=== PATIENT | female | born 1940 | race Caucasian/White ===

== ENCOUNTER 2020-10-29 16:25 | Inpatient (IN) | payer MEDICARE, OTHER ==
[~2020-10-29] VITALS: Ht 165.1 cm; Wt 95.4 kg
[~2020-10-29 16:25] MED LIST: ASPIRIN CHEWABL81 MG PO; ASPIRIN325 M1 PO; CERTAGEN1 EACH PO; COZAAR100 MG PO; ELIQUIS5 MG PO; HYZAAR 100-12.1 EACH PO; LEXAPRO 10MG TA10 MG PO; LOVASTATIN20 MG PO; LOVAZA1 GM PO; NORCO 5-325 TA1 EACH PO; PRILOSEC20 MG PO; TOPROL XL 25MG25 MG PO; TYLENOL500 MG PO
[2020-10-29 17:16] LABS: BASOPHIL 0.3 % (0-2); EOSINOPHIL 1.2 % (0-7); HGB 14.5 g/dl (12.5-16.0); LYMPHOCYTE 21.5 % (15-48); MCH 33.3 pg (25.0-31.0); MCHC 33.7 g/dL (32.0-36.0); MCV 98.6 fL (78.0-100.0); MONOCYTE 10.8 % (0-12); MPV 10.9 fL (6.0-9.5); NEUTROPHIL 66.1 % (41-80); NRBC 0; PLT 258 K/uL (150-400); RBC 4.36 M/uL (4.20-5.40); RDW 11.9 % (11.5-14.0); WBC 6.7 K/uL (4.0-10.5)
[2020-10-29 17:33] LABS: INR 1.44 (0.9-1.2); PROTHROMBIN TIME 16.8 SECONDS (11.8-13.4); PTT 28.6 SECONDS (24.4-34.7)
[2020-10-29 17:44] LABS: ALBUMIN 3.5 g/dL (3.4-5.0); BILIRUBIN - TOTAL 0.4 mg/dL (0.2-1.0); BUN/CREAT RATIO (CALC) 19.8 RATIO; CREATININE 1.06 mg/dL (0.51-0.95); FT4 (FREE T4) 0.8 ng/dL (0.76-1.46); GLOBULIN (CALCULATION) 3.2 g/dL; POTASSIUM 3.7 mmol/L (3.5-5.1); TOTAL PROTEIN 6.7 g/dL (6.4-8.2)
[2020-10-29 17:45] LABS: PRO-BNP 385 pg/mL (<450)
[2020-10-29 18:15] LABS: BILIRUBIN NEGATIVE (NEGATIVE); BLOOD NEGATIVE Ery/uL (NEGATIVE); CLARITY CLEAR (CLEAR); COLOR YELLOW (YELLOW); GLUCOSE (U) NORMAL (NORMAL); LEUKOCYTES TRACE Leu/uL (NEGATIVE); NITRITE NEGATIVE (NEGATIVE); PROTEIN NEGATIVE (NEGATIVE); UROBILINOGEN 0.2 mg/dL (0.2-1.0)
[2020-10-29 18:34] LABS: URINARY WBC RARE
[2020-10-29 18:35] LABS: BACTERIA TRACE
[2020-10-29] MEDS ORDERED: HCTZ12.5 MG PO (20:48)
[2020-10-29] MEDS ORDERED: WARFARIN SODIUM2 MG PO (20:48)
[2020-10-29] MEDS ORDERED: CLARITIN10 MG PO (20:49)
[2020-10-29] MEDS ORDERED: ACETAMINOPHEN500 M1 PO (20:49)
[2020-10-30 04:35] LABS: BASOPHIL 0.3 % (0-2); EOSINOPHIL 1.5 % (0-7); HCT 41.1 % (37.0-47.0); HGB 14.3 g/dl (12.5-16.0); LYMPHOCYTE 26.3 % (15-48); MCH 33.6 pg (25.0-31.0); MCHC 34.8 g/dL (32.0-36.0); MCV 96.7 fL (78.0-100.0); MONOCYTE 14.4 % (0-12); MPV 10.7 fL (6.0-9.5); NEUTROPHIL 57.2 % (41-80); NRBC 0; PLT 249 K/uL (150-400); RBC 4.25 M/uL (4.20-5.40); WBC 7.2 K/uL (4.0-10.5)
[2020-10-30 04:45] LABS: INR 1.52 (0.9-1.2); PROTHROMBIN TIME 17.6 SECONDS (11.8-13.4); PTT 28.1 SECONDS (24.4-34.7)
[2020-10-30 05:08] LABS: ALBUMIN 3.1 g/dL (3.4-5.0); BILIRUBIN - TOTAL 0.6 mg/dL (0.2-1.0); BUN/CREAT RATIO (CALC) 19.6 RATIO; CREATININE 0.97 mg/dL (0.51-0.95); GLOBULIN (CALCULATION) 2.8 g/dL; POTASSIUM 3.3 mmol/L (3.5-5.1); TOTAL PROTEIN 5.9 g/dL (6.4-8.2)
[2020-10-31 04:12] LABS: BASOPHIL 0.4 % (0-2); EOSINOPHIL 1.1 % (0-7); HCT 39.3 % (37.0-47.0); HGB 13.4 g/dl (12.5-16.0); LYMPHOCYTE 26.1 % (15-48); MCH 33.3 pg (25.0-31.0); MCHC 34.1 g/dL (32.0-36.0); MCV 97.5 fL (78.0-100.0); MONOCYTE 15.4 % (0-12); MPV 10.7 fL (6.0-9.5); NEUTROPHIL 56.7 % (41-80); NRBC 0; PLT 245 K/uL (150-400); RBC 4.03 M/uL (4.20-5.40); RDW 12.2 % (11.5-14.0)
[2020-10-31 04:20] LABS: INR 1.53 (0.9-1.2); PROTHROMBIN TIME 17.7 SECONDS (11.8-13.4)
[2020-10-31 04:39] LABS: BUN/CREAT RATIO (CALC) 23.2 RATIO; CREATININE 0.99 mg/dL (0.51-0.95); MAGNESIUM 1.8 mg/dL (1.8-2.4); POTASSIUM 3.5 mmol/L (3.5-5.1)
[2020-10-31 04:46] LABS: PRO-BNP 1886 pg/mL (<450)
--- NOTE | 2020-10-31 17:00 | NUR ---
PT TO TRANSFER TO [facility]. EMS HERE FOR TRAMSPORT. ALL BELONGINGS TAKEN WITH PT. REPORT CALLED TO KELLEY ASTUDILLO.
== END 2020-10-31 16:48 | disposition other institution (70) | DRG 309 ==
LOC: FER 16:25 → FICU 19:39 → FTCU 10-30 12:04
PROVIDERS: Emergency Medicine; Internal Medicine Clinical Cardiac Electrophysiology; Nurse Practitioner; ADMIT Internal Medicine
DX: I49.5 Sick sinus syndrome (principal); I48.20 Chronic atrial fibrillation, unspecified; J01.90 Acute sinusitis, unspecified; I10 Essential (primary) hypertension; Z20.822 Contact with and (suspected) exposure to COVID-19; M19.90 Unspecified osteoarthritis, unspecified site; E78.5 Hyperlipidemia, unspecified; K21.9 Gastro-esophageal reflux disease without esophagitis; G47.30 Sleep apnea, unspecified; F41.9 Anxiety disorder, unspecified; Z79.899 Other long term (current) drug therapy; Z79.01 Long term (current) use of anticoagulants; Z87.891 Personal history of nicotine dependence; Z88.0 Allergy status to penicillin; Z82.49 Family history of ischemic heart disease and other diseases of the circulatory system; Z83.3 Family history of diabetes mellitus; Z80.8 Family history of malignant neoplasm of other organs or systems
CPT/HCPCS: 36415; 71045; 80048; 80053; 80061; 80162; 81001; 82550; 82553; 83735; 83880; 84439; 84443; 84484; 85025; 85610; 85730; 93005; 94010; J0696; J1160; U0002